=== PATIENT | male | born 1995 | race Hispanic/Latino ===

== ENCOUNTER 2023-10-09 23:54 | Observation (INO) | payer MEDICAID, OTHER ==
[~2023-10-09] VITALS: Ht 165.1 cm; Wt 99.5 kg
[2023-10-10] MEDS: GLUCAGON 1MG KIT 1 MG ML IV SCH (00:08)
[2023-10-10] MEDS: GLUCAGON 1MG KIT 1 MG ML ONE (00:09)
[2023-10-10] MEDS: 0.9%NACL 1000ML 1,000 ML IV ONE (00:21)
[2023-10-10 00:42] LABS: BASOPHILS # (AUTO) 0.02 K/uL (0.00-0.20); BASOPHILS % (AUTO) 0.2 % (0.0-5.0); EOSINOPHILS # (AUTO) 0.25 K/uL (0.00-0.70); EOSINOPHILS % (AUTO) 2.5 % (0.0-8.0); HEMATOCRIT 44.5 % (42-54); IMMATURE GRANULOCYTE ABSOLUTE 0.02 K/uL (0-1); LYMPHOCYTES # (AUTO) 2.5 K/uL (1.0-4.8); LYMPHOCYTES % (AUTO) 25.9 % (21.0-51.0); MEAN CORPUSCULAR HEMOGLOBIN 29.9 pg (27.0-33.0); MEAN CORPUSCULAR HGB CONC 35.5 g/dL (32.0-36.0); MEAN CORPUSCULAR VOLUME 84.1 fL (79-99); MONOCYTES # (AUTO) 0.5 K/uL (0.1-1.0); MONOCYTES % (AUTO) 5.3 % (3.0-13.0); NEUTROPHILS # (AUTO) 6.5 K/uL (1.8-7.7); NEUTROPHILS % (AUTO) 65.9 % (40.0-77.0); PLATELET COUNT (AUTO) 207 K/uL (130-400); RED BLOOD CELL COUNT(AUTO) 5.29 MIL/uL (4.50-6.20); RED CELL DISTRIBUTION WIDTH 12.3 % (11.0-15.5); WHITE BLOOD COUNT (AUTO) 9.8 K/uL (4.8-10.8)
[2023-10-10 00:53] LABS: INR 0.96 (0.85-1.15); PROTHROMBIN TIME 11.4 SEC (9.6-11.6)
[2023-10-10 00:55] LABS: PARTIAL THROMBOPLASTIN TIME 30.2 SEC (26.3-35.5)
[2023-10-10 00:56] LABS: ALBUMIN 4.3 g/dL (3.5-5.0); BILIRUBIN,TOTAL 0.7 mg/dL (0.2-1.0); CREATININE 0.8 mg/dL (0.5-1.3); POTASSIUM 3.1 mmol/L (3.5-5.1); TOTAL PROTEIN, SERUM 7.7 g/dL (6.0-8.3)
[2023-10-10] MEDS ORDERED: IOHEXOL 350 MG/ML 100ML INFUS..BTL IV ONE (01:15)
[2023-10-10] MEDS ORDERED: IOHEXOL-350 50ML VIAL IV ONE (01:15)
[2023-10-10] MEDS ORDERED: ACETAMINOPHEN 650 MG SUPPOSITORY RC PRN (01:30)
[2023-10-10] MEDS ORDERED: ONDANSETRON 4MG INJ IVP PRN (01:30)
[2023-10-10] MEDS: DEXTROSE 5 % AND 0.9 % NACL 1,000 ML IV SCH (01:30)
[2023-10-10 02:30] VITALS: BP 136/81; PULSE 74; RESP 19
[2023-10-10 08:00] VITALS: BP 116/70; PULSE 76; RESP 18
[2023-10-10] MEDS ORDERED: POTASSIUM CHLORIDE 20MEQ/100ML 100 ML IV PRN (08:30)
[2023-10-10] MEDS: POTASSIUM CHLORIDE 20MEQ/100ML 100 ML IV PRN (08:59)
[2023-10-10 12:00] VITALS: BP 122/63; PULSE 74; RESP 18
[2023-10-10 16:00] VITALS: BP 127/70; PULSE 93; RESP 18
[2023-10-10] MEDS: KCL 20 MEQ ERTAB PO PRN (18:06)
[2023-10-10] MEDS: POTASSIUM CHLORIDE 10% ELIXIR 20 MEQ/15 ML UDCUP PO PRN (18:06)
[2023-10-10 20:00] VITALS: BP 115/87; PULSE 87; RESP 20
[2023-10-10 23:51] VITALS: BP 120/77; PULSE 72; RESP 20
[2023-10-11] VITALS (17 sets, daily range): BP systolic 98–131; BP diastolic 44–85; PULSE 53–95; RESP 17–20; O2SAT 97
[2023-10-11 05:03] LABS: BASOPHILS # (AUTO) 0.02 K/uL (0.00-0.20); BASOPHILS % (AUTO) 0.3 % (0.0-5.0); EOSINOPHILS # (AUTO) 0.24 K/uL (0.00-0.70); EOSINOPHILS % (AUTO) 3.1 % (0.0-8.0); HEMATOCRIT 40.1 % (42-54); IMMATURE GRANULOCYTE ABSOLUTE 0.04 K/uL (0-1); LYMPHOCYTES # (AUTO) 3.2 K/uL (1.0-4.8); LYMPHOCYTES % (AUTO) 40.8 % (21.0-51.0); MEAN CORPUSCULAR HEMOGLOBIN 29.6 pg (27.0-33.0); MEAN CORPUSCULAR HGB CONC 34.7 g/dL (32.0-36.0); MEAN CORPUSCULAR VOLUME 85.3 fL (79-99); MONOCYTES # (AUTO) 0.6 K/uL (0.1-1.0); MONOCYTES % (AUTO) 7.8 % (3.0-13.0); NEUTROPHILS # (AUTO) 3.7 K/uL (1.8-7.7); NEUTROPHILS % (AUTO) 47.5 % (40.0-77.0); PLATELET COUNT (AUTO) 177 K/uL (130-400); RED CELL DISTRIBUTION WIDTH 12.3 % (11.0-15.5); WHITE BLOOD COUNT (AUTO) 7.8 K/uL (4.8-10.8)
[2023-10-11 05:19] LABS: CREATININE 0.7 mg/dL (0.5-1.3); MAGNESIUM 1.8 mg/dL (1.80-2.40); POTASSIUM 3.5 mmol/L (3.5-5.1)
[2023-10-11] MEDS ORDERED: PROPOFOL 10 MG/ML 20ML VIAL IV ONE (13:57)
[2023-10-11] MEDS ORDERED: MIDAZOLAM HCL 1 MG/ML 2ML VIAL ONE (13:57)
[2023-10-11] MEDS ORDERED: LIDOCAINE PF 100MG/5ML (2%) SYRINGE 5ML ONE (13:57)
[2023-10-11] MEDS ORDERED: PANT40TA PO (15:45)
== END 2023-10-11 18:20 | disposition home or self-care (01) ==
LOC: EDH 23:54 → EDHIP 10-10 01:01 → INTOOBSV 10-10 01:01 → 3CH 10-10 01:58
PROVIDERS: ADMIT Internal Medicine Infectious Disease; ATTEND Internal Medicine Infectious Disease
DX: T17.228A Food in pharynx causing other injury, initial encounter (principal); K22.2 Esophageal obstruction; K29.70 Gastritis, unspecified, without bleeding; K22.10 Ulcer of esophagus without bleeding; K29.00 Acute gastritis without bleeding; R11.2 Nausea with vomiting, unspecified; E87.6 Hypokalemia; E66.9 Obesity, unspecified; Z68.36 Body mass index [BMI] 36.0-36.9, adult; W44.F3XA Food entering into or through a natural orifice, initial encounter; Y93.89 Activity, other specified; Y92.89 Other specified places as the place of occurrence of the external cause; Y99.8 Other external cause status
CPT/HCPCS: 96361 ×2; 99285; 80053; 85025 ×2; 85610; 85730; 36415 ×2; 71260; 70491; 96374; 83735; 80048; 88305; 88312; 43239; 43249; J1610; J7042; J7030 ×2; J3480; Q9967 ×2; G0378 ×2; J2001; J2250; J2704; C1726; A4620; A4215; A4223; A4222; J3490